=== PATIENT | female | born 1995 | race Caucasian/White ===

== ENCOUNTER 2020-12-29 13:35 | Emergency (ER) | payer OTHER ==
[~2020-12-29] VITALS: Ht 25.4 cm; Wt 86.6 kg
[2020-12-29 13:41] VITALS: Ht 25.4 cm; Wt 86.6 kg
[2020-12-29 14:45] LABS: BASOPHIL % 0.6 % (0.2-1.3); PLATELET COUNT 329 x10^3mcL (179-408); RED CELL DISTRIBUTION WIDTH 13.3 % (12.3-17.7)
[2020-12-29 15:03] LABS: CALCIUM 9.4 mg/dL (8.5-10.1); CARBON DIOXIDE 25.5 mmol/L (21-32); CHLORIDE SERUM 102 mmol/L (98-107); CREATININE SERUM 0.7 mg/dL (0.6-1.0); GFR1 > 60 mL/min; GLUCOSE SERUM 138 mg/dL (74-106); SODIUM SERUM 137 mmol/L (136-145)
[2020-12-29 15:05] LABS: ALBUMIN 3.4 g/dL (3.4-5.0); ALKALINE PHOSPHATASE 74 U/L (46-116); ALT/SGPT 27 U/L (14-59); AST/SGOT 18 U/L (15-37); BILIRUBIN TOTAL 0.22 mg/dL (0.20-1.00); TOTAL PROTEIN, SERUM 7.6 g/dL (6.4-8.2)
[2020-12-29 16:27] VITALS: BP 125/79
== END 2020-12-29 16:27 | disposition home or self-care (01) ==
LOC: ED 13:35
PROVIDERS: Student in an Organized Health Care Education/Training Program
DX: O26.891 Other specified pregnancy related conditions, first trimester (principal); R10.30 Lower abdominal pain, unspecified; R11.2 Nausea with vomiting, unspecified; F31.9 Bipolar disorder, unspecified; Z3A.01 Less than 8 weeks gestation of pregnancy

== ENCOUNTER 2021-01-26 13:18 | Emergency (ER) | payer OTHER ==
[~2021-01-26] VITALS: Ht 162.6 cm; Wt 68.0 kg
[2021-01-26 13:25] VITALS: Ht 162.6 cm; Wt 68.0 kg
[2021-01-26 14:16] VITALS: BP 105/60
== END 2021-01-26 14:16 ==
LOC: ED 13:18
DX: Z02.89 Encounter for other administrative examinations (principal)